=== PATIENT | female | born 1980 | race African-American/Black ===

== ENCOUNTER 2022-03-23 18:59 | Emergency (ER) | payer OTHER ==
[2022-03-23 19:37] VITALS: BP 123/87; PULSE 75; TEMP 98.1; BMI 42.0
[2022-03-23] MEDS ORDERED: IBUPROFEN 600 MG TABLET (FP) PO ONE ×2 (21:07→21:09)
== END 2022-03-23 21:09 | disposition home or self-care (01) ==
LOC: JERFT 18:59
DX: M79.604 Pain in right leg (principal)
CPT/HCPCS: 93970-TC; 99284-25